=== PATIENT | female | born 1965 | race Caucasian/White ===

== ENCOUNTER 2020-04-13 12:47 | Outpatient (REF) | payer MEDICAID, SELFPAY ==
[2020-04-13 13:55] LABS: Glucose Urine UA NEG (NEG); Leukocyte Esterase Urine 1+ (NEG); Nitrite Urine NEG (NEG); PH 6.5 (5.0-8.0); Specific Gravity - Urine 1.015 (1.005-1.025); Urine Blood NEG (NEG); Urine Ketones NEG (NEG); Urine Protein NEG (NEG-TRACE)
[2020-04-13 14:00] LABS: Appearance Urine CLOUDY; Color Urine YELLOW
[2020-04-13 14:18] LABS: RBC Urine 0 /HPF (0)
== END 2020-04-13 12:48 | disposition home or self-care (01) ==
LOC: HO.LAB 12:47
PROVIDERS: PCP Pediatrics; Visit Provider Pediatrics
DX: N30.01 Acute cystitis with hematuria (principal)
CPT/HCPCS: 81001; 87086; 87088; 87186

== ENCOUNTER 2020-04-19 15:16 | Outpatient (REF) | payer MEDICAID, SELFPAY | END 2020-04-19 15:17 | disposition home or self-care (01) | LOC: HO.LAB 15:16 | PROVIDERS: Visit Provider Internal Medicine | DX: Z20.828 Contact with and (suspected) exposure to other viral communicable diseases (principal) | CPT/HCPCS: C9803; U0003 ==

== ENCOUNTER 2020-05-04 12:50 | Outpatient (REF) | payer MEDICAID, SELFPAY ==
--- NOTE | 2020-05-04 13:00 | MR_ITS ---
EXAMINATION: MRI BRAIN WITHOUT CONTRAST CLINICAL INFORMATION: Dizziness and hyperreflexia. COMPARISON: None TECHNIQUE: Routine imaging of brain was performed without contrast. FINDINGS: There is no abnormal signal visualized on diffusion to suspect any acute ischemia. There is scattered abnormal T2-FLAIR signal changes in deep white matter surrounding the both occipital lobes and centrum semiovale. Some of these lesions appear perpendicular to lateral ventricle in the centrum semiovale and are suspicious for demyelination. There is no associated edema, midline shift or mass effect. No abnormal signal seen in the posterior fossa. Normal flow void signal seen in the major cerebral vasculature. The lateral ventricles are symmetrical in size, but enlarged likely from central cerebral volume loss. The sella is full of CSF signal likely secondary to an empty sella syndrome. The craniovertebral axis is normal. MR/MR head/brain wo con IMPRESSION: Scattered T2-FLAIR sequence is throughout the deep white matter of both cerebral hemispheres suspicious for demyelination. Other differential diagnosis should be taken into consideration if the findings do not match history. There is no acute infarct, bleed or edema. Suspect mild cerebral central volume loss.
== END 2020-05-04 12:51 | disposition home or self-care (01) ==
LOC: HO.MRI 12:50
PROVIDERS: Visit Provider Psychiatry & Neurology Neurology
DX: R42 Dizziness and giddiness (principal); R29.2 Abnormal reflex
CPT/HCPCS: 70551

== ENCOUNTER 2020-06-16 13:44 | Outpatient (REF) | payer MEDICAID, SELFPAY ==
--- NOTE | 2020-06-16 14:12 | MR_ITS ---
EXAMINATION: MR CERVICAL SPINE WITHOUT CONTRAST CLINICAL INFORMATION: Demyelinating disease. Hyperreflexia. COMPARISON: No relevant prior imaging. TECHNIQUE: MRI of the cervical spine was obtained using routine sequences without contrast. FINDINGS: There is slight anterolisthesis of C4 on C5 and C7 on T1 that appears to be related to facet degenerative changes at these 2 levels. Alignment is otherwise normal. There are type I degenerative endplate changes at C5-C6. Bone marrow signal intensity is otherwise unremarkable. There is loss of intervertebral disc height and T2 signal intensity at C5-C6. Disc desiccation at multiple additional levels without substantial loss of intervertebral disc height. There is no cord compression or abnormal intramedullary signal changes. The cervicomedullary junction is normal. Limited visualization of the intracranial compartment reveals an enlarged empty sella turcica. The occipital condyles and lateral C1 masses are intact. There is degenerative arthrosis of the atlantodental joint. C1-C2 articular facets are unremarkable. At C2-C3 the annular contour is normal. No canal or neuroforaminal compromise. At C3-C4 the annular contour is normal. No canal or neuroforaminal compromise. At C4-C5 there is a slightly bulging disc. No canal stenosis. No neuroforaminal encroachment. At C5-C6 there is a slightly bulging disc. No canal stenosis. Uncovertebral joint spurring and facet degenerative change causes moderate right and mild left neuroforaminal encroachment. At C6-C7 there is a small central protrusion. No canal stenosis. No neuroforaminal encroachment. At C7-T1 there is an asymmetrically bulging disc to the left. Bilateral facet degenerative change. No canal stenosis. Mild to moderate left neuroforaminal encroachment. Visualized soft tissues of the neck are unremarkable. MR/MR cervical spine wo con IMPRESSION: There is multilevel degenerative spondylosis of the cervical spine with slight anterolisthesis of C4 on C5 and C7 on T1 related to facet arthrosis at these 2 levels. No canal stenosis. Uncovertebral joint spurring and facet degenerative change at C5-C6 causes moderate right and mild left neuroforaminal encroachment. There is also mild to moderate left neuroforaminal narrowing at the level of C7-T1. Although only partially included within the [id number] of this examination there is an enlarged partially empty sella turcica, the details of which are better depicted on the dedicated brain MRI from 05/04/2020.
== END 2020-06-16 13:45 | disposition home or self-care (01) ==
LOC: HO.MRI 13:44
PROVIDERS: Visit Provider Psychiatry & Neurology Neurology
DX: G37.9 Demyelinating disease of central nervous system, unspecified (principal); R29.2 Abnormal reflex; R27.0 Ataxia, unspecified
CPT/HCPCS: 72141

== ENCOUNTER 2020-06-24 15:54 | Outpatient (REF) | payer MEDICAID, SELFPAY ==
[2020-06-24 17:48] LABS: Syphilis Screen Nonreactive (Nonreactive)
[2020-06-24 18:22] LABS: Erythrocyte Sedimentation Rate 9 MM/HR (0-20)
[2020-06-25 13:17] LABS: Lyme Abs Screen <0.90 index
[2020-06-27 08:27] LABS: HIV AB/AG Nonreactive (Nonreactive); HIV Num 1 0.06 S/CO (0.00-0.99)
[2020-07-01 02:02] LABS: JCV Antibody POSITIVE
== END 2020-06-24 15:55 | disposition home or self-care (01) ==
LOC: HO.LAB 15:54
PROVIDERS: PCP Pediatrics; Visit Provider Psychiatry & Neurology Neurology
DX: G37.9 Demyelinating disease of central nervous system, unspecified (principal)
CPT/HCPCS: 36415; 85652; 86618; 86711; 86780; 87389

== ENCOUNTER 2020-07-13 09:19 | Day surgery (SDC) | payer MEDICAID, SELFPAY ==
--- NOTE | 2020-07-13 | FL_ITS ---
PROCEDURE: XR LUMBAR PUNCTURE CLINICAL INFORMATION: Demyelinating disease. COMPARISON: None TECHNIQUE: Following explaining fluoroscopy-guided lumbar puncture procedure, benefits and risk, a written consent was obtained. Patient was placed prone on fluoroscopy table and low back area was cleaned and draped in the usual sterile manner. 1% lidocaine was injected overlying the L4-L5 disc level. A 22-gauge spinal needle was then inserted from left paramidline approach intrathecally. After observing CSF return patient was placed in left lateral decubitus view and opening CSF pressure was obtained. CSF fluid was then collected in 4 test tubes. The stylet was reintroduced and needle withdrawn. Complete hemostasis was achieved at puncture site. Patient tolerated procedure extremely well. Sterile dressing was applied postprocedure. FINDINGS: The opening CSF pressure measured 17 cm of water. Approximately 9 mL of clear CSF fluid was collected in 4 test tubes. Part of this fluid was sent to lab as per referring physician's orders. FLUOROSCOPY TIME: 0.3 minutes. DOSE AREA PRODUCT: 1.342 uGy-m2 (microgray-meter squared). FL/FL guided lumbar puncture LP IMPRESSION: Successful fluoroscopy-guided lumbar puncture performed at L4-L5 disc level.
[2020-07-13 09:52] VITALS: BMI 25.1
[2020-07-13 10:16] LABS: MANUAL DIFF FLAG NO
[2020-07-13 10:22] LABS: Basophils Percent Auto 0.1 % (0-2); Eosinophils Absolute Auto 0.2 X10*3/uL (0.0-0.4); Eosinophils Percent Auto 3.1 % (0-4); Hematocrit 34.8 % (37-47); Hemoglobin 10.6 g/dl (12.0-16.0); Imm Gran Abs Auto 0.05 X10*3/uL (0.00-0.03); Imm Gran Pct Auto 0.6 % (0.0-0.4); Lymphocytes Absolute Auto 0.8 X10*3/uL (1.2-4.9); Lymphocytes Percent Auto 9.9 % (20-40); Mean Corpuscular HGB Conc 30.5 g/dl (31.0-35.0); Mean Corpuscular Hemoglobin 26.8 pg (27.0-33.0); Mean Corpuscular Volume 87.9 fL (80-98); Mean Platelet Volume 10.9 fL (9.4-12.3); Monocytes Absolute Auto 0.8 X10*3/uL (0.1-1.2); Monocytes Percent Auto 10.5 % (2-11); Neutrophils Absolute Auto 5.9 X10*3/uL (2.0-8.3); Neutrophils Percent Auto 75.8 % (45-73); Platelet Count 115 X10*3/uL (160-400); Red Blood Count 3.96 X10*6/uL (4.20-5.50); Red Cell Distribution Width 14.9 % (11.0-16.0); White Blood Count 7.8 X10*3/uL (4.8-10.8)
[2020-07-13 10:25] LABS: INTERNATIONAL NORM RATIO 0.9 (0.9-1.1); Prothrombin Time 10.8 SEC (10.8-13.0)
[2020-07-13 12:15] VITALS: BP 91/61; PULSE 68; RESP 18; O2SAT 98
[2020-07-13 12:45] VITALS: BP 98/53; PULSE 67; RESP 18; O2SAT 98
[2020-07-13 13:14] VITALS: BP 93/48; PULSE 72; RESP 18; O2SAT 95
[2020-07-13 13:25] LABS: CSF Appearance Clear, Colorless; CSF Tube # 3
[2020-07-13 13:38] LABS: Glucose CSF 56 mg/dL; Total Protein CSF 26.5 mg/dL (15-45)
[2020-07-13 14:15] VITALS: BP 84/43; PULSE 72; RESP 16; O2SAT 95
[2020-07-13 14:45] VITALS: BP 93/46; PULSE 70; RESP 18; O2SAT 95
[2020-07-13 15:34] LABS: CSF Tube # 4
[2020-07-13 15:35] LABS: Appearance CSF CLEAR; Color CSF COLORLESS; Red Blood Cell CSF 3 MM*3; White Blood Cell CSF 0 MM*3
[2020-07-14 08:10] LABS: Oligoclonal Serum Yes
[2020-07-17 22:18] LABS: Albumin 3.2 g/dL (3.5-5.2); Albumin, CSF 15.9 mg/dL (8.0-42.0); IgG 963 mg/dL (600-1640); IgG Synthesis Rate -2.3 mg/24 h (-9.9-3.3); IgG, CSF 2.4 mg/dL (0.8-7.7)
== END 2020-07-13 15:08 | disposition home or self-care (01) ==
LOC: HO.SSS 09:20
PROVIDERS: Psychiatry & Neurology Neurology; PCP Pediatrics; Visit Provider Radiology Diagnostic Radiology
PROC: 009U3ZZ Drainage of Spinal Canal, Percutaneous Approach (ICD-10-PCS; CPT 62270; principal; 2020-07-13 11:00)
DX: G37.9 Demyelinating disease of central nervous system, unspecified (principal); N18.6 End stage renal disease; Z94.0 Kidney transplant status; R42 Dizziness and giddiness; R29.2 Abnormal reflex; Z79.82 Long term (current) use of aspirin; Z88.8 Allergy status to other drugs, medicaments and biological substances; Z79.899 Other long term (current) drug therapy
CPT/HCPCS: 36415; 62328; 82042; 82945; 83916; 84157; 85025; 85610; 85730; 87015; 87070; 87205; 89051

== ENCOUNTER 2020-08-12 14:09 | Outpatient (REF) | payer MEDICAID, SELFPAY ==
--- NOTE | ~2020-08-12 | MR_ITS ---
EXAMINATION: MR THORACIC SPINE WITHOUT CONTRAST CLINICAL INFORMATION: Paresthesias. COMPARISON: Cervical spine MRI from 06/16/2020. TECHNIQUE: MRI of the thoracic spine was obtained using routine sequences without contrast. FINDINGS: Limited evaluation of the cervical spine is notable for mild reversal the normal cervical lordosis centered on C5-C6. Advanced degenerative disc disease at C5-C6. Moderate degenerative disc disease at C4-C5, C6-C7, and C7-T1. Moderately expanded sella turcica. Straightening of the lower thoracic kyphosis. Minimal degenerative anterolisthesis of T2 on T3. Otherwise, normal anatomic alignment. Mild multilevel degenerative disc disease throughout the thoracic spine. Mild degenerative Modic type II discogenic endplate changes from T2-T6 and at T9-T10. No suspicious marrow edema. The vertebral body heights are well-maintained. No significant abnormalities of the thoracic spinal cord. The conus medullaris terminates at T12-L1. No significant abnormalities of the paraspinal musculature. Matter atrophy of the bilateral kidneys. Ectasia of the common bile duct. There is a subcentimeter T2 hyperintense cyst in the medial aspect of the spleen. Otherwise, limited evaluation of the intrathoracic structures without significant abnormalities. The descending thoracic aorta is of normal contour and caliber. AXIAL SPINAL LEVELS: Minimal posterior disc herniations at T11-T12 and T12-L1. Otherwise, normal annular contours. Mild multilevel facet joint arthropathy, most notably in the lower thoracic spine. No overt spinal canal or neural foraminal stenosis. 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 No overt spinal canal stenosis or nerve root compression. Moderate degenerative spondyloarthropathy of the cervical spine is better evaluated on recent cervical spine MRI.
== END 2020-08-12 14:10 | disposition home or self-care (01) ==
LOC: HO.MRI 14:09
PROVIDERS: Visit Provider Psychiatry & Neurology Neurology
DX: G82.20 Paraplegia, unspecified (principal)
CPT/HCPCS: 72146

== ENCOUNTER 2020-08-18 14:30 | Outpatient (REF) | payer MEDICAID, SELFPAY ==
[2020-08-18 16:00] LABS: Alanine Aminotransferase 11 U/L (0-31); Albumin Level 3.9 g/dL (3.5-5.0); Alkaline Phosphatase 82 U/L (39-117); Aspartate Amino Transferase 18 U/L (5-31); Bilirubin Direct 0.2 mg/dL (0.0-0.5); Bilirubin Total 0.6 mg/dL (0.0-1.0); Total Protein 6.4 g/dL (6.5-8.0)
[2020-08-20 11:47] LABS: Folate 16.4 ng/mL (> or = 4.0); Vitamin B12 645 pg/mL (200-900)
[2020-08-24 17:22] LABS: HTLV I-II Antibody Nonreactive (Nonreactive)
== END 2020-08-18 14:31 | disposition home or self-care (01) ==
LOC: HO.LAB 14:30
PROVIDERS: PCP Pediatrics; Visit Provider Psychiatry & Neurology Neurology
DX: G83.89 Other specified paralytic syndromes (principal); F11.20 Opioid dependence, uncomplicated
CPT/HCPCS: 36415; 80076; 82607; 82746; 86790

== ENCOUNTER 2020-12-20 12:56 | Outpatient (REF) | payer MEDICAID, SELFPAY ==
--- NOTE | ~2020-12-20 | MR_ITS ---
EXAMINATION: MR BRAIN WITHOUT CONTRAST CLINICAL INFORMATION: Spastic paraparesis. COMPARISON: MRI dated 05/04/2020. TECHNIQUE: Multiplanar, multisequence imaging of the brain was performed without contrast. Somewhat limited examination with motion artifacts. FINDINGS: No diffusion abnormalities are identified to suggest an acute or subacute infarct. The ventricles are normal in size. No mass effect or midline shift is seen. Mild to marked chronic white matter microangiopathic changes are stable. No extra-axial fluid collections are seen. The brainstem and cerebellum are normal. Expanded empty sella is again visible. The gradient refocused acquisition demonstrates no pathologic magnetic susceptibility artifact to indicate underlying acute or chronic blood products. The craniovertebral junction, marrow signal, and remaining midline structures are normal. The major intracranial flow voids at the level of the [place] are preserved. The dural venous sinus flow voids are maintained. The mastoid air cells and paranasal sinuses are well aerated. MR/MR head/brain wo con IMPRESSION: Slightly limited study with motion artifacts. No acute process. Stable examination with mild to moderate chronic white matter microangiopathy and a mildly expanded empty sella.
== END 2020-12-20 12:57 | disposition home or self-care (01) ==
LOC: HO.MRI 12:56
PROVIDERS: PCP Pediatrics; Visit Provider Psychiatry & Neurology Neurology
DX: G83.89 Other specified paralytic syndromes (principal)
CPT/HCPCS: 70551

== ENCOUNTER 2021-06-19 14:23 | Outpatient (REF) | payer MEDICAID, SELFPAY ==
--- NOTE | ~2021-06-19 | XR_ITS ---
EXAMINATION: XR FACIAL BONES XR HIP, RIGHT XR KNEE, RIGHT CLINICAL INFORMATION: Trauma. COMPARISON: None. TECHNIQUE: 5 views of the facial bones. AP and frog-lateral views of the right hip. 4 views of the right knee. FINDINGS: No facial bone fracture is evident. The paranasal sinuses appear clear. No right hip fracture or dislocation. No joint space narrowing. Vascular calcifications are noted, as well as chondrocalcinosis of the pubic symphysis. Normal alignment of the right knee with no fracture. No joint effusion. No degenerative findings. Prominent vascular calcification. XR/XR facial bones <3V IMPRESSION: No acute osseous abnormality of the facial bones, right hip, or right knee. If there is a strong clinical suspicion of an occult facial bone fracture, a CT would be suggested.
--- NOTE | ~2021-06-19 | XR_ITS ---
EXAMINATION: XR FACIAL BONES XR HIP, RIGHT XR KNEE, RIGHT CLINICAL INFORMATION: Trauma. COMPARISON: None. TECHNIQUE: 5 views of the facial bones. AP and frog-lateral views of the right hip. 4 views of the right knee. FINDINGS: No facial bone fracture is evident. The paranasal sinuses appear clear. No right hip fracture or dislocation. No joint space narrowing. Vascular calcifications are noted, as well as chondrocalcinosis of the pubic symphysis. Normal alignment of the right knee with no fracture. No joint effusion. No degenerative findings. Prominent vascular calcification. XR/XR knee RT 4V IMPRESSION: No acute osseous abnormality of the facial bones, right hip, or right knee. If there is a strong clinical suspicion of an occult facial bone fracture, a CT would be suggested.
--- NOTE | ~2021-06-19 | XR_ITS ---
EXAMINATION: XR FACIAL BONES XR HIP, RIGHT XR KNEE, RIGHT CLINICAL INFORMATION: Trauma. COMPARISON: None. TECHNIQUE: 5 views of the facial bones. AP and frog-lateral views of the right hip. 4 views of the right knee. FINDINGS: No facial bone fracture is evident. The paranasal sinuses appear clear. No right hip fracture or dislocation. No joint space narrowing. Vascular calcifications are noted, as well as chondrocalcinosis of the pubic symphysis. Normal alignment of the right knee with no fracture. No joint effusion. No degenerative findings. Prominent vascular calcification. XR/XR hip RT min 2V IMPRESSION: No acute osseous abnormality of the facial bones, right hip, or right knee. If there is a strong clinical suspicion of an occult facial bone fracture, a CT would be suggested.
== END 2021-06-19 14:24 | disposition home or self-care (01) ==
LOC: HO.XRAY 14:23
PROVIDERS: Absent Provider Pediatrics; PCP Pediatrics; Visit Provider General Practice
DX: S00.83XA Contusion of other part of head, initial encounter (principal); S79.911A Unspecified injury of right hip, initial encounter; S89.91XA Unspecified injury of right lower leg, initial encounter; X58.XXXA Exposure to other specified factors, initial encounter; Y93.9 Activity, unspecified; Y92.9 Unspecified place or not applicable; Y99.9 Unspecified external cause status; Z91.81 History of falling
CPT/HCPCS: 70140; 73502; 73564

== ENCOUNTER 2021-09-06 10:22 | Outpatient (REF) | payer MEDICAID, SELFPAY ==
--- NOTE | ~2021-09-06 | XR_ITS ---
EXAMINATION: XR BILATERAL HIPS WITH AP PELVIS CLINICAL INFORMATION: Hip pain. COMPARISON: None TECHNIQUE: AP view of the pelvis and 2 views of each hip were obtained. FINDINGS: AP pelvis: There is normal symmetry of bilateral hip joints and SI joints. No visible acute fracture, dislocation or subluxation seen. No lytic process. Right hip: There is no visible acute fracture, dislocation or subluxation seen. There is no bony erosive changes. The soft tissues are normal. Left hip: There is no visible acute fracture, dislocation or subluxation seen. The soft tissues are normal. XR/XR hip BI w PEL1V IMPRESSION: Unremarkable AP pelvis and hip exam.
== END 2021-09-06 10:23 | disposition home or self-care (01) ==
LOC: HO.XRAY 10:22
PROVIDERS: PCP Pediatrics; Visit Provider Pediatrics
DX: S79.911A Unspecified injury of right hip, initial encounter (principal)
CPT/HCPCS: 73521

== ENCOUNTER 2021-09-19 11:32 | Outpatient (REF) | payer MEDICAID, SELFPAY ==
--- NOTE | ~2021-09-19 | MM_ITS ---
EXAMINATION: BONE DENSITOMETRY CLINICAL INDICATION: Asymptomatic menopausal state. COMPARISON: Previous BD dated 02/18/2019 and baseline BD dated 09/13/2016. TECHNIQUE: Using a [employer] DXA System (software version: 13.1) manufactured by [employer], dual-energy x-ray absorptiometry was performed of the lumbar spine and left hip. The images are of good technical quality. Summary results are attached. FINDINGS: AP SPINE L1-L4: Current: BMD 0.912 g/cm2, Z-score -0.6, T-score -2.2, osteopenia, 5.9% decrease from previous, 9.0% decrease from baseline (<5% change is not significant). Prior: BMD 0.969 g/cm2. Baseline: BMD 1.002 g/cm2. LEFT FEMUR, NECK: Current: BMD 0.655 g/cm2, Z-score -1.2, T-score -2.8, osteoporosis. Prior: BMD 0.745 g/cm2. Baseline: BMD 0.793 g/cm2. LEFT FEMUR, TOTAL: Current: BMD 0.742 g/cm2, Z-score -0.9, T-score -2.1, osteopenia, 12.2% decrease from previous, 17.7% decrease from baseline (<5% change is not significant). Prior: BMD 0.845 g/cm2. Baseline: BMD 0.902 g/cm2. IDENTIFIED RISK FACTORS: Early menopause, secondary osteoporosis, low body weight, recurrent falls, renal, history of fracture (adult), glucocorticoids (chronic). HISTORY OF FRACTURE: Ankle. MEDICATIONS: Vitamin D. MM/XR DEXA axial skeleton IMPRESSION: 1. DIAGNOSIS: Osteoporosis based on the lowest T-score value of -2.8 in the femoral neck applying World Health Organization criteria. 2. 10-YEAR FRACTURE RISK PREDICTION, FRAX: According to the guidelines, FRAX calculation should only be performed on patients in the osteopenia bone density category. Therefore, FRAX was not performed on this patient. 3. Treatment Recommendations: NOF guidelines recommend consideration for treatment in postmenopausal women and men age 50 and older presenting with the following: -A hip or vertebral (clinical or morphometric) fracture. -T-score less than or equal to -2.5 at the femoral neck or spine after appropriate evaluation to exclude secondary causes. -Low bone mass at the hip or spine and a 10-year fracture probability by FRAX of greater than or equal to 3% for hip fracture or greater than or equal to 20% for major osteoporotic fracture based on the [place] adapted WHO algorithm. 4. Other Recommendations: All treatment decisions require clinical judgment and consideration of individual patient factors, including patient preferences, comorbidities, previous drug use, risk factors not captured in the FRAX model (e.g. frailty, falls, vitamin D deficiency, increased bone turnover, interval significant decline in bone density) and possible under or overestimation of fracture risk by FRAX. Additional medical evaluation for secondary cause of low bone mineral density may be appropriate. FUTURE SCAN RECOMMENDATION: People with diagnosed cases of osteoporosis or at high risk for fracture should have regular bone mineral density tests. For patients eligible for Medicare, routine testing is allowed once every 2 years. The testing frequency can be increased to one year for patients who have rapidly progressing disease, those who are receiving or discontinuing medical therapy to restore bone mass, or have additional risk factors.
--- NOTE | ~2021-09-19 | MM_ITS ---
EXAMINATION: MM SCREENING DIGITAL BREAST TOMOSYNTHESIS, BILATERAL CLINICAL INFORMATION: Screening. Asymptomatic. The lifetime risk of breast cancer based on the Tyrer-Cuzick Model is 8%. COMPARISON: Mammography: 11/25/2018, 12/03/2017, 10/17/2017, 09/13/2016 TECHNIQUE: Digital breast tomosynthesis is performed in both the craniocaudal and mediolateral oblique views along with computer-aided detection (CAD). Synthesized 2D images are generated from the tomosynthesis. FINDINGS: There are scattered areas of fibroglandular density (ACR BI-RADS breast composition Category b). There are no significant masses, abnormal calcifications, or other abnormalities. There is no developing density or interval architectural abnormality. Scattered benign round and some coarse calcifications are present in each breast. The axilla and skin contours are unremarkable. MM/MM tomosynthesis screening BI IMPRESSION: No mammographic evidence of malignancy. ASSESSMENT: BI-RADS 2: Benign RECOMMENDATION: Routine annual mammography screening. This patient's information was entered into a reminder system with a target due date for their next mammogram.
== END 2021-09-19 11:33 | disposition home or self-care (01) ==
LOC: HO.MAMMO 11:32
PROVIDERS: Visit Provider Pediatrics
DX: Z12.31 Encounter for screening mammogram for malignant neoplasm of breast (principal); Z13.820 Encounter for screening for osteoporosis; Z78.0 Asymptomatic menopausal state; M81.0 Age-related osteoporosis without current pathological fracture
CPT/HCPCS: 77063; 77067; 77080